=== PATIENT | female | born 1980 | race Native Hawaiian/Other Pacific Islander ===

== ENCOUNTER 2018-01-17 12:38 | Emergency (ER) | payer OTHER ==
[2018-01-17 12:57] VITALS: RESP 16; O2SAT 100
[2018-01-17 14:01] LABS: BASO # 0.03 K/mm3 (0.0-2.0); BASO % 0.4 % (0.0-3.0); EOS # 0.1 (0.0-0.7); EOS % 0.9 % (1.5-5.0); GRAN # 4.8 (1.4-6.5); GRAN % 69.2 % (50.0-68.0); HEMOGLOBIN 12.7 g/dL (12.0-16.0); LYMPH # 1.6 (1.2-3.4); LYMPH % 22.3 % (22.0-35.0); MEAN CELL VOLUME 90.1 fl (80.0-105.0); MEAN CORPUSCULAR HEMOGLOBIN 30.8 pg (25.0-35.0); MEAN CORPUSCULAR HGB CONC 34.1 g/dl (31.0-37.0); MEAN PLATELET VOLUME 9.9 fl (7.0-11.0); MONO # 0.5 (0.1-0.6); MONO % 7.2 % (1.0-6.0); RBC 4.13 10^6/uL (3.5-6.1); RED CELL DISTRIBUTION WIDTH 13.1 % (11.5-14.5); URINE APPEARANCE CLEAR (CLEAR); URINE BILIRUBIN NEGATIVE (NEGATIVE); URINE BLOOD LARGE (NEGATIVE); URINE COLOR YELLOW (YELLOW); URINE GLUCOSE (UA) NEGATIVE (NEGATIVE); URINE LEUKOCYTE ESTERASE TRACE Leu/uL (NEGATIVE); URINE PROTEIN NEGATIVE mg/dL (<30 mg/dL); URINE UROBILINOGEN 0.2 E.U./dL (<1 E.U./dL); WHITE BLOOD COUNT 6.9 10^3/ul (4.5-11.0)
[2018-01-17 14:07] LABS: URINE BACTERIA FEW (NEG); URINE EPITHELIAL CELLS 0 - 2 /hpf (0-5); URINE RBC 15 - 20 /hpf (0-2); URINE WBC 0 - 2 /hpf (0-6)
--- NOTE | 2018-01-17 14:30 | ED PDOC ---
Arrival/HPI - General Chief Complaint: Female Genitourinary Time Seen by Provider: 01/17/18 12:40 Historian: Patient - History of Present Illness Narrative History of Present Illness (Text): 01/17/18 14:26 A 38 y/o F , presents to the ED with a complaint of vaginal bleeding. Patient notes that she took a test at home yesterday which was positive. She states that she has experienced pressure in the suprapubic area and lower back pain. She notes that her last menstrual period was on 2017. She notes that she went to [place] at the beginning of this month, but denies symptoms of leg swelling. She denies any previous smoking history or use of OCPs. The patient denies fevers, chills, headache, dizziness, sore throat, cough, chest pain, shortness of breath, dyspnea on exertion, vomiting, diarrhea , neck pain, urinary/bowel changes, dysuria, or any other complaint. Time/Duration: Other (Today) Symptom Onset: Sudden Symptom Course: Unchanged Activities at Onset: Rest, Light Context: Home Past Medical History - Provider Review Nursing Documentation Reviewed: Yes - Travel History Have you recently traveled outside w/in the past 3 mons?: No - Cardiac Hx Cardiac Disorders: No - Pulmonary Hx Respiratory Disorders: No - Neurological Hx Neurological Disorder: No - HEENT Hx HEENT Disorder: No - Renal Hx Renal Disorder: No - Endocrine/Metabolic Hx Endocrine Disorders: No - Hematological/Oncological Hx Blood Disorders: No - Integumentary Hx Dermatological Disorder: No - Musculoskeletal/Rheumatological Hx Musculoskeletal Disorders: No - Gastrointestinal Hx Gastrointestinal Disorders: No - Genitourinary/Gynecological Hx Genitourinary Disorders: No - Psychiatric Hx Psychophysiologic Disorder: No Hx Substance Use: No - Surgical History Hx Section: Yes (x2) - Anesthesia Hx Anesthesia: Yes Family/Social History - Physician Review Nursing Documentation Reviewed: Yes Family/Social History: No Known Family HX Smoking Status: Never Smoked Hx Alcohol Use: No Hx Substance Use: No Allergies/Home Meds Allergies/Adverse Reactions: Allergies No Known Allergies Allergy (Unverified 01/17/18 13:30) Review of Systems - Physician Review All systems were reviewed & negative as marked: Yes - Review of Systems Constitutional: absent: Fevers ENT: absent: Sore Throat Respiratory: absent: SOB, Cough Cardiovascular: absent: Chest Pain, MELTON Gastrointestinal: Abdominal Pain (Right suprapubic pressure). absent: Stool Changes, Diarrhea, Nausea, Vomiting Genitourinary Female: Vaginal Bleeding. absent: Dysuria, Urine Output Changes Musculoskeletal: Back Pain (Mid- back pain). absent: Neck Pain Neurological: absent: Headache, Dizziness Physical Exam Vital Signs Reviewed: Yes Vital Signs Temp Pulse Resp BP Pulse Ox 01/17/18 15:21 98.0 F 80 16 108/70 100 01/17/18 14:45 98 F 80 16 108/70 100 01/17/18 12:38 98.2 F 83 16 111/66 100 Temperature: Afebrile Blood Pressure: Normal Pulse: Regular Respiratory Rate: Normal Appearance: Positive for: Well-Appearing, Non-Toxic, Comfortable Pain Distress: None Mental Status: Positive for: Alert and Oriented X 3 - Systems Exam Head: Present: Atraumatic, Normocephalic Pupils: Present: PERRL Extroacular Muscles: Present: EOMI Conjunctiva: Present: Normal Mouth: Present: Moist Mucous Membranes Neck: Present: Normal Range of Motion Respiratory/Chest: Present: Clear to Auscultation, Good Air Exchange. No: Respiratory Distress, Accessory Muscle Use Cardiovascular: Present: Regular Rate and Rhythm, Normal S1, S2. No: Murmurs Abdomen: Present: Tenderness (Tenderness to palpation to the right lower quadrant.). No: Distention, Peritoneal Signs Back: Present: Normal Inspection Upper Extremity: Present: Normal Inspection. No: Cyanosis, Edema Lower Extremity: Present: Normal Inspection. No: Edema Neurological: Present: GCS=15, CN II-XII Intact, Speech Normal Skin: Present: Warm, Dry, Normal Color. No: Rashes Psychiatric: Present: Alert, Oriented x 3, Normal Insight, Normal Concentration Medical Decision Making ED Course and Treatment: 01/17/18 14:30 Impression: A 38 year old female presents to the emergency department for further evaluation for vaginal bleeding s/p subjective positive test. Differential Diagnosis included but are not limited to: Threatened Onset of menses Fibroids Hemorrhagic ovarian cyst Plan: -- Transvaginal Ultrasound -- Urine Culture -- Labs -- Reassess and disposition Progress Notes: 01/17/2018 14:55 Transvaginal Ultrasound IMPRESSION: Normal exam. Dictator: Casper Ren MD 01/17/18 15:39 Pelvic exam offered to patient which patient refuses, desiring to defer to her mooner. Urine negative. Labs reviewed with unremarkable findings. US reveals no free fluid within the pelvis with intact blood flow to ovaries and no IUP. Results discussed with patient who is advised to follow up with mooner(Dr. Per Billy). She understands and is in agreement with plan to discharge. She is stable for discharge. - Lab Interpretations Microbiology Results: Microbiology Results 01/17/18 13:35 Urine,Clean Catch Urine Culture - Final No Growth (<1,000 CFU/ML) Lab Results: 01/17/18 13:35 01/17/18 14:40 Lab Results 01/17/18 14:40: Beta HCG, Quant 57.76 H 01/17/18 14:40: Sodium 141, Potassium 3.9, Chloride 104, Carbon Dioxide 26, Anion Gap 14, BUN 11, Creatinine 0.6 L, Est GFR ( Amer) > 60, Est GFR ( Non-Af Amer) > 60, Random Glucose 88, Calcium 9.4, Total Bilirubin 0.5, AST 20, ALT 16, Alkaline Phosphatase 44, Total Protein 8.2, Albumin 4.6, Globulin 3.6, Albumin/Globulin Ratio 1.3 01/17/18 13:35: Urine Color Yellow, Urine Appearance Clear, Urine pH 7.0, Ur Specific Golden 1.015, Urine Protein Negative, Urine Glucose (UA) Negative, Urine Ketones Negative, Urine Blood Large H, Urine Nitrate Negative, Urine Bilirubin Negative, Urine Urobilinogen 0.2, Ur Leukocyte Esterase Trace H, Urine RBC 15 - 20, Urine WBC 0 - 2, Ur Epithelial Cells 0 - 2, Urine Bacteria Few 01/17/18 13:35: WBC 6.9, RBC 4.13, Hgb 12.7, Hct 37.2, MCV 90.1, MCH 30.8, MCHC 34.1, RDW 13.1, Plt Count 297, MPV 9.9, Gran % 69.2 H, Lymph % (Auto) 22.3, Rowan % (Auto) 7.2 H, Eos % (Auto) 0.9 L, Baso % (Auto) 0.4, Gran # 4.80, Lymph # (Auto) 1.6, Rowan # (Auto) 0.5, Eos # (Auto) 0.1, Baso # (Auto) 0.03 I have reviewed the lab results: Yes - RAD Interpretation Radiology Orders: 01/17/18 13:31 TRANSVAGINAL [US] Stat - Scribe Statement The provider has reviewed the documentation as recorded by the Scribe Beba Smyth Provider Scribe Attestation: All medical record entries made by the Scribe were at my direction and personally dictated by me. I have reviewed the chart and agree that the record accurately reflects my personal performance of the history, physical exam, medical decision making, and the department course for this patient. I have also personally directed, reviewed, and agree with the discharge instructions and disposition. Disposition/Present on Arrival - Present on Arrival Any Indicators Present on Arrival: No History of DVT/PE: No History of Uncontrolled Diabetes: No Urinary Catheter: No History of Decub. Ulcer: No History Surgical Site Infection Following: None - Disposition Have Diagnosis and Disposition been Completed?: Yes Diagnosis: Vaginal bleeding Disposition: HOME/ ROUTINE Disposition Time: 15:19 Patient Plan: Discharge Condition: STABLE Discharge Instructions (ExitCare): Heavy Periods (DC) Referrals: Hernando Byrd Jr., MD [Primary Care Provider] - Follow up with primary Nayla Garcia MD [Medical Doctor] - Follow up with primary Forms: [employer] (French)
--- NOTE | 2018-01-17 14:57 | US ---
Date of service: 01/17/2018 PROCEDURE: HISTORY: vaginal bleeding COMPARISON: TECHNIQUE: FINDINGS: Is 10.0 x 4.5 x 4.8 centimeters. The endometrium measures 9 millimeters. The ovaries have a normal sonographic appearance. There is no free fluid in the pelvis. IMPRESSION: Normal exam.
[2018-01-17 15:09] LABS: ALB/GLOB RATIO 1.3 (1.1-1.8); ALBUMIN 4.6 g/dL (3.0-4.8); ALT/SGPT 16 U/L (7-56); AST/SGOT 20 U/L (14-36); BLOOD UREA NITROGEN 11 mg/dL (7-21); CALCIUM 9.4 mg/dL (8.4-10.5); GFR NON-AFRICAN AMERICAN > 60
[2018-01-17 15:19] VITALS: BP 108/70; PULSE 80
[2018-01-17 15:48] VITALS: TEMP 98
[2018-01-17] MEDS ORDERED: DiphenhydrAMINE 50 mg/ml Inj ONE (23:19)
== END 2018-01-17 15:21 | disposition home or self-care (01) ==
LOC: ED 12:38
DX: N93.9 Abnormal uterine and vaginal bleeding, unspecified (principal)